=== PATIENT | female | born 1980 | race Two or more races ===

== ENCOUNTER 2023-03-18 12:54 | Emergency (ER) | payer OTHER ==
[~2023-03-18] VITALS: Ht 154.9 cm; Wt 67.6 kg
[2023-03-18 14:02] LABS: HEMATOCRIT 37.4 % (36.0-45.00); HEMOGLOBIN 12.4 g/dL (12.0-15.00); MEAN CELL VOLUME 79.7 fL (80.00-100.00); MEAN CORPUSCULAR HEMOGLOBIN 26.5 pg (27.00-32.0); MEAN CORPUSCULAR HGB CONC 33.2 g/dl (32.0-36.0); PLATELET COUNT 187 K/uL (150-450); RED BLOOD COUNT 4.69 M/uL (4.00-6.00); RED CELL DISTRIBUTION WIDTH 12.9 % (11.5-14.5)
[2023-03-18 14:37] LABS: CALCIUM 9.2 mg/dL (8.5-10.1); CREATININE SERUM 0.59 mg/dL (0.55-1.02); GFR 110.73; POTASSIUM 3.73 mEq/L (3.5-5.1)
== END 2023-03-18 15:39 | disposition home or self-care (01) ==
LOC: ER 12:56
PROVIDERS: Emergency Medicine
DX: K29.70 Gastritis, unspecified, without bleeding (principal)
CPT/HCPCS: 36415; 96365; 99284; J3490